=== PATIENT | female | born 1995 | race Caucasian/White ===

== ENCOUNTER 2018-12-31 12:00 | Emergency (ER) | payer SELFPAY ==
[2018-12-31 12:13] VITALS: BP 105/73
--- NOTE | 2018-12-31 14:12 | ER Document Report ---
ED Medical Screen (RME) - General Chief Complaint: Flank Pain Stated Complaint: RIGHT SIDE PAIN Time Seen by Provider: 12/31/18 14:07 Mode of Arrival: Ambulatory Information source: Patient Notes: 23-year-old female presents emergency department complaints of right flank pain, dysuria, hematuria, increased urgency, increased frequency that started yesterday and has been constant. Patient describes the pain is an aching and cramping sensation. No radiation. No alleviating or aggravating factors. Patient denies any nausea, vomiting, diarrhea, constipation. Patient states that her last measure. Was on 12/04/18. Patient is concerned that she might be . I have greeted and performed a rapid initial assessment of this patient. A comprehensive ED assessment and evaluation of the patient, analysis of test results and completion of the medical decision making process will be conducted by additional ED providers. PHYSICAL EXAMINATION: GENERAL: Well-appearing, well-nourished and in no acute distress. HEAD: Atraumatic, normocephalic. EYES: Pupils equal round extraocular movements intact, conjunctiva are normal. ENT: Nares patent NECK: Normal range of motion LUNGS: No respiratory distress Musculoskeletal: Normal range of motion NEUROLOGICAL: Normal speech, normal gait. PSYCH: Normal mood, normal affect. SKIN: Warm, Dry, normal turgor, no rashes or lesions noted. TRAVEL OUTSIDE OF THE [place] IN LAST 30 DAYS: No - Related Data Allergies/Adverse Reactions: No Known Allergies Allergy (Unverified 12/31/18 12:03) Past Medical History - Social History Chew tobacco use (# tins/day): No Frequency of alcohol use: Occasional Drug Abuse: None Renal/ Medical History: Denies: Hx Peritoneal Dialysis Physical Exam - Vital signs Vitals: Temp Pulse Resp BP Pulse Ox 98.2 F 87 14 105/73 96 12/31/18 12:11 12/31/18 12:11 12/31/18 12:11 12/31/18 12:11 12/31/18 12:11 Course - Vital Signs Vital signs: Temp Pulse Resp BP Pulse Ox 98.2 F 87 14 105/73 96 12/31/18 12:11 12/31/18 12:11 12/31/18 12:11 12/31/18 12:11 12/31/18 12:11
[2018-12-31 15:49] LABS: ABSOLUTE BASOPHILS # (AUTO) 0.1 10^3/uL (0.0-0.2); ABSOLUTE LYMPHOCYTES (AUTO) 1.4 10^3/uL (0.5-4.7); ABSOLUTE MONOCYTES (AUTO) 0.7 10^3/uL (0.1-1.4); ABSOLUTE NEUT (AUTO) 6.6 10^3/uL (1.7-8.2); BASOPHILS % (AUTO) 1.1 % (0-2); EOSINOPHILS % (AUTO) 0.3 % (0-6); HEMATOCRIT 34.2 % (36.0-47.0); HEMOGLOBIN 11.3 g/dL (12.0-15.5); LYMPHOCYTES % (AUTO) 15.4 % (13-45); MEAN CORPUSCULAR HEMOGLOBIN 25.7 pg (27.0-33.4); MEAN CORPUSCULAR VOLUME 78 fl (80-97); PLATELET COUNT 277 10^3/uL (150-450); RED CELL DISTRIBUTION WIDTH 16.1 % (11.5-14.0); SEGMENTED NEUTROPHILS % (AUTO) 75.2 % (42-78); TOTAL CELLS COUNTED % (AUTO) 100 %; WHITE BLOOD COUNT 8.8 10^3/uL (4.0-10.5)
[2018-12-31 16:02] LABS: AMORPHOUS SEDIMENT,URINE TRACE /HPF; APPEARANCE,URINE CLOUDY; BILIRUBIN,URINE NEGATIVE (NEGATIVE); COLOR,URINE YELLOW; GLUCOSE, URINE NEGATIVE (NEGATIVE); KETONES,URINE TRACE mg/dL (NEGATIVE); LEUKOCYTE ESTERASE,URINE LARGE (NEGATIVE); NITRITE,URINE NEGATIVE (NEGATIVE); PROTEIN,URINE 100 mg/dL (NEGATIVE); URINE SPECIFIC GRAVITY 1.017; UROBILINOGEN,URINE NEGATIVE mg/dL (<2.0)
[2018-12-31 16:06] LABS: ALANINE AMINOTRANSFERASE 20 U/L (9-52); ALBUMIN 5.1 g/dL (3.5-5.0); ALKALINE PHOSPHATASE 66 U/L (38-126); ANION GAP 12 (5-19); ASPARTATE AMINO TRANSFERASE 18 U/L (14-36); BILIRUBIN,DIRECT 0.1 mg/dL (0.0-0.4); BILIRUBIN,TOTAL 0.4 mg/dL (0.2-1.3); BLOOD UREA NITROGEN 11 mg/dL (7-20); CARBON DIOXIDE 24 mmol/L (22-30); CHLORIDE 104 mmol/L (98-107); GLUCOSE 100 mg/dL (75-110); POTASSIUM 4.6 mmol/L (3.6-5.0); SODIUM 139.8 mmol/L (137-145); TOTAL PROTEIN 7.8 g/dL (6.3-8.2)
--- NOTE | 2018-12-31 17:45 | RADIOLOGY REPORT (SQ) ---
EXAM DESCRIPTION: U/S RETROPERITON (RENAL/AORTA) COMPLETED DATE/TIME: 12/31/2018 5:33 pm REASON FOR STUDY: Right flank pain COMPARISON: None. TECHNIQUE: Dynamic and static grayscale images acquired of the kidneys and bladder and recorded on P ACS. Additional selected color Doppler and spectral images recorded. LIMITATIONS: None. FINDINGS: RIGHT KIDNEY: Normal size. Normal echogenicity. No solid or suspicious masses. No hydronep hrosis. No calcifications. LEFT KIDNEY: Normal size. Normal echogenicity. No solid or suspicious masses. No hydronephrosis. No calcifications. BLADDER: Decompressed. OTHER FINDINGS: No other significant finding. IMPRESSION: No ultrasound abnormality of the kidneys to explain right-sided flank pain. No hydronep hrosis. TECHNICAL DOCUMENTATION: JOB ID: [id number] [employer] All Rights Reserved Reading location - IP/workstation name: [email or web address]
[2018-12-31] MEDS ORDERED: PHENAZOPYRIDINE HCL 200 MG TABLET PO ONE (18:11)
[2018-12-31] MEDS ORDERED: CEPHALEXIN 500 MG CAPSULE PO ONE (18:11)
--- NOTE | 2018-12-31 18:22 | ER Document Report ---
ED General - General Chief Complaint: Flank Pain Stated Complaint: RIGHT SIDE PAIN Time Seen by Provider: 12/31/18 14:07 Mode of Arrival: Ambulatory Notes: Patient is a 23-year-old female presents to the emergency department complaining of right side pain and dysuria for the last 24 hours. Patient states she is unable to swallow pills so she has not taken any eaym-vuk-iqbbmso medication for her generalized pain. Patient states her last menstrual period was 12/09/2018. Patient denies any vomiting, fever, diarrhea, URI symptoms. Patient denies any vaginal discharge. Past medical history: None Medications: None Allergies: None TRAVEL OUTSIDE OF THE [place] IN LAST 30 DAYS: No - Related Data Allergies/Adverse Reactions: No Known Allergies Allergy (Unverified 12/31/18 12:03) Past Medical History - General Information source: Patient - Social History Smoking Status: Never Smoker Chew tobacco use (# tins/day): No Frequency of alcohol use: Occasional Drug Abuse: None Family History: Reviewed & Not Pertinent Patient has suicidal ideation: No Patient has homicidal ideation: No Renal/ Medical History: Denies: Hx Peritoneal Dialysis Review of Systems - Review of Systems Constitutional: See HPI EENT: See HPI Cardiovascular: No symptoms reported Respiratory: No symptoms reported Gastrointestinal: See HPI Genitourinary: See HPI Female Genitourinary: See HPI Musculoskeletal: No symptoms reported Skin: No symptoms reported Hematologic/Lymphatic: No symptoms reported Neurological/Psychological: No symptoms reported Physical Exam - Vital signs Vitals: Temp Pulse Resp BP Pulse Ox 98.2 F 87 14 105/73 96 12/31/18 12:11 12/31/18 12:11 12/31/18 12:11 12/31/18 12:11 12/31/18 12:11 - Notes Notes: GENERAL: Alert, interacts well. No acute distress. HEAD: Normocephalic, atraumatic. EYES: Pupils equal, round, and reactive to light. Extraocular movements intact. ENT: Oral mucosa moist, tongue midline. NECK: Full range of motion. Supple. Trachea midline. LUNGS: Clear to auscultation bilaterally, no wheezes, rales, or rhonchi. No respiratory distress. HEART: Regular rate and rhythm. No murmur ABDOMEN: Soft, non-tender. Non-distended. Bowel sounds present in all 4 quadrants. Generalized right side pain no McBurney's point tenderness, no Lakhani sign noted. EXTREMITIES: Moves all 4 extremities spontaneously. No edema, normal radial and dorsalis pedis pulses bilaterally. No cyanosis. BACK: no cervical, thoracic, lumbar midline tenderness. No saddle anesthesia, normal distal neurovascular exam. No CVA tenderness noted bilaterally. Generalized NEUROLOGICAL: Alert and oriented x3. Normal speech. cranial nerves II through XII grossly intact PSYCH: Normal affect, normal mood. SKIN: Warm, dry, normal turgor. No rashes or lesions noted. Course - Re-evaluation Re-evalutation: 12/31/18 18:22 Patient's labs reveal no signs of leukocytosis, no signs of electrolyte abnormalities. Patient's urine does show signs of infection with moderate high blood noted. Patient states she is not currently on her menstrual cycle. Patient states the pain stays in her right side does not radiate down her right lower quadrant or into her groin. States she only has pain in her right side and then when she urinates. Discussed potential diagnosis of a kidney stone due to the blood in the patient's urine. Also discussed diagnosis of urinary tract infection. Patient's ultrasound shows no signs of hydronephrosis. Patient is afebrile, non-tachycardic, stable for discharge. Discussed use of oral antibiotics for her urinary tract infection following up with primary care provider. Patient voices understanding, stable for discharge - Vital Signs Vital signs: Temp Pulse Resp BP Pulse Ox 98.2 F 87 14 105/73 96 12/31/18 12:11 12/31/18 12:11 12/31/18 12:11 12/31/18 12:11 12/31/18 12:11 - Laboratory Result Diagrams: 12/31/18 15:13 12/31/18 15:13 Laboratory results interpreted by me: 12/31/18 12/31/18 12/31/18 15:13 15:13 15:13 Hgb 11.3 L Hct 34.2 L MCV 78 L MCH 25.7 L RDW 16.1 H Albumin 5.1 H Urine Protein 100 H Urine Ketones TRACE H Urine Blood MODERATE H Ur Leukocyte Esterase LARGE H Urine Ascorbic Acid 20 H Discharge - Discharge Clinical Impression: Urinary tract infection Qualifiers: Urinary tract infection type: acute cystitis Hematuria presence: with hematuria Qualified Code(s): N30.01 - Acute cystitis with hematuria Condition: Stable Disposition: HOME, SELF-CARE Instructions: Cephalexin ([facility]), Urinary Tract Infection ([facility]) Additional Instructions: As we discussed you have been seen and treated in the emergency went for a urinary tract infection and a right side pain. Your ultrasound reveals no abnormalities of your right kidney. Please take antibiotics as prescribed. Please take [id number] Tylenol Motrin for generalized pain. Please follow-up with your primary care provider in the next 24-48 hours. Please return to the emergency room for any other concerning symptoms. Prescriptions: Cephalexin Monohydrate [Keflex 250 mg/5 ml Susp] 500 mg PO BID 7 Days ml
[2019-01-01] MEDS ORDERED: CEPHALEXIN 250 MG/5 ML SUSP 100 ML PO ONE (18:17)
== END 2018-12-31 19:12 | disposition home or self-care (01) ==
LOC: ER 12:00
DX: N30.01 Acute cystitis with hematuria (principal)
CPT/HCPCS: 36415; 76770; 80053; 81001; 81025; 85025; 99284

== ENCOUNTER → 2020-12-14 | Outpatient (CLI) | payer BC, MEDICAID ==
--- NOTE | 2020-12-14 16:38 | RADIOLOGY REPORT (SQ) ---
EXAM DESCRIPTION: U/S [id number] TRNABD 1GES W/ODOP IMAGES COMPLETED DATE/TIME: 12/14/2020 1:41 pm REASON FOR STUDY: (Z34.01)ENCNTR FOR SUPRVSN OF NORMAL FIRST PREG, FIRST TRIMESTER Z34.01 ENCNTR FO R SUPRVSN OF NORMAL FIRST PREG, FIRST TRIMES COMPARISON: None. TECHNIQUE: Transvaginal static and realtime grayscale images acquired of the pelvis. Additional sabine cted spectral and color Doppler images recorded. All images stored on PACs. bHCG: Not available. CLINICAL DATES: 10 weeks, 0 days LIMITATIONS: None. FINDINGS: FETUS: Single Living intrauterine . ULTRASOUND EGA: 10 weeks, 1 day ULTRASOUND PATRICK: 07/11/2021 EFW: Not applicable less than 20 weeks. CRL: 3.3 cm FHR: 175 beats per minute. SURVEY: Too early to assess. AMNIOTIC FLUID: Adequate amount. PLACENTA: Not yet developed due to early gestation. SUBCHORIONIC BLEED: Yes. SIZE OF BLEED: 2.0 x 1.7 x 2.2 cm UTERUS: No masses. No anomalies. CERVICAL LENGTH: 2.5 cm Closed. RIGHT ADNEXA: Normal ovary with normal vascular flow. No adnexal free fluid. No adnexal masses. LEFT ADNEXA: Ovary not identified due to poor acoustical window. No adnexal free fluid. No adnexal masses. FREE FLUID: None. OTHER: No other significant finding. IMPRESSION: LIVING INTRAUTERINE . EGA 10 weeks, 1 day Trimester of : First trimester - 0 to 13 weeks. TECHNICAL DOCUMENTATION: JOB ID: [id number] [employer]- All Rights Reserved rev-04/09 Reading location - IP/workstation name: [email or web address]
== END ==
LOC: RAD 13:14
PROVIDERS: ATTEND Midwife
DX: Z34.01 Encounter for supervision of normal first pregnancy, first trimester (principal); Z3A.10 10 weeks gestation of pregnancy
CPT/HCPCS: 76801